=== PATIENT | female | born 1955 | race Caucasian/White ===

== ENCOUNTER 2021-02-06 14:29 | Outpatient (RCR) | payer BC | END 2021-02-07 | disposition home or self-care (01) | PROVIDERS: ATTEND Nurse Practitioner | DX: M54.6 Pain in thoracic spine (principal) ==

== ENCOUNTER 2021-02-21 09:19 | Outpatient (RCR) | payer BC | END 2021-02-22 | disposition home or self-care (01) | PROVIDERS: ATTEND Nurse Practitioner | DX: M54.2 Cervicalgia (principal); M54.6 Pain in thoracic spine; M54.50 Low back pain, unspecified ==

== ENCOUNTER → 2021-03-25 | Outpatient (RCR) | payer BC | END | disposition home or self-care (01) | PROVIDERS: ATTEND Nurse Practitioner | DX: M54.2 Cervicalgia (principal); M54.6 Pain in thoracic spine; M54.50 Low back pain, unspecified ==

== ENCOUNTER 2021-04-16 11:16 | Outpatient (RCR) | payer BC | END 2021-04-22 | disposition home or self-care (01) | PROVIDERS: ATTEND Nurse Practitioner | DX: M54.2 Cervicalgia (principal); M54.6 Pain in thoracic spine; M54.50 Low back pain, unspecified ==

== ENCOUNTER → 2021-05-23 | Outpatient (RCR) | payer BC | END | disposition home or self-care (01) | PROVIDERS: ATTEND Nurse Practitioner | DX: M54.2 Cervicalgia (principal); M54.6 Pain in thoracic spine; M54.50 Low back pain, unspecified ==

== ENCOUNTER 2021-06-20 10:25 | Outpatient (RCR) | payer BC | END 2021-06-22 | disposition home or self-care (01) | PROVIDERS: ATTEND Nurse Practitioner | DX: M54.2 Cervicalgia (principal); M54.6 Pain in thoracic spine; M54.50 Low back pain, unspecified ==

== ENCOUNTER → 2021-07-23 | Outpatient (RCR) | payer BC | END | disposition home or self-care (01) | PROVIDERS: ATTEND Nurse Practitioner | DX: M54.2 Cervicalgia (principal); M54.6 Pain in thoracic spine; M54.50 Low back pain, unspecified ==

== ENCOUNTER 2021-08-20 11:19 | Outpatient (RCR) | payer BC | END 2021-08-22 | disposition home or self-care (01) | PROVIDERS: ATTEND Nurse Practitioner | DX: M54.2 Cervicalgia (principal); M54.6 Pain in thoracic spine; M54.50 Low back pain, unspecified ==

== ENCOUNTER 2021-09-06 09:44 | Outpatient (RCR) | payer BC | END 2021-09-22 | disposition home or self-care (01) | PROVIDERS: ATTEND Nurse Practitioner | DX: M54.2 Cervicalgia (principal); M54.6 Pain in thoracic spine; M54.50 Low back pain, unspecified ==

== ENCOUNTER 2021-10-22 11:14 | Outpatient (RCR) | payer BC | END 2021-10-23 | disposition home or self-care (01) | PROVIDERS: ATTEND Nurse Practitioner | DX: M54.2 Cervicalgia (principal); M54.6 Pain in thoracic spine; M54.50 Low back pain, unspecified ==

== ENCOUNTER 2021-11-20 10:35 | Outpatient (RCR) | payer BC | END 2021-11-20 12:00 | disposition home or self-care (01) | PROVIDERS: ATTEND Nurse Practitioner | DX: M54.2 Cervicalgia (principal); M54.6 Pain in thoracic spine; M54.50 Low back pain, unspecified ==